=== PATIENT | male | born 1940 | race Caucasian/White ===

== ENCOUNTER 2017-06-20 21:28 | Emergency (ER) | payer MEDICARE ==
[~2017-06-20] VITALS: Ht 177.8 cm; Wt 86.2 kg
[~2017-06-20 21:28] MED LIST: MEDROL 4MG. DOSE4 MG PO
[2017-06-20] MEDS ORDERED: LISINOPRIL20 MG PO (21:43)
[2017-06-20] MEDS ORDERED: SIMVASTATIN20 MG PO (21:44)
[2017-06-20] MEDS ORDERED: PREDNISONE 5MG.5 MG PO (21:44)
[2017-06-20] MEDS ORDERED: ELIQUIS5 MG PO (21:45)
[2017-06-20] MEDS ORDERED: ALLOPURINOL100 MG PO (21:45)
[2017-06-20] MEDS ORDERED: ATIVAN1 MG PO (21:46)
[2017-06-20] MEDS ORDERED: ACETAMINOPHEN-H1 TA1 PO (21:46)
[2017-06-20] MEDS ORDERED: DULOXETINE HYDR30 MG PO (21:47)
[2017-06-20] MEDS ORDERED: TEKTURNA150 MG PO (21:48)
--- OUTSIDE RECORDS SUMMARY | 2017-06-20 21:55 | External Medical Summary Rpt | CCD ---
Author Author , MALINI Organization MALINI Address Unknown Phone [email or web address] Purpose Continuity of Care Document - 01-16-2017 through 2016 Problems Code Diagnosis DOS Provider Status Z13.6 ENCOUNTER 01-16-2017 FOR SCREENING FOR CARDIOVASCU LAR DISORDERS Results Labs Lab Lab Date Result Refere Interp Status Commen Order Detail nces retati t Range on Bas Metab 1999 Pnl SerPl (03-01-2017 11:40) Comment: Meter: [id number] Regrader: [id number] [employer] [facility] Glucose 302 70-130 complet BldC 017 mg/dL ed Glucomt 11:40 r-mCnc Bas Metab 2000 Pnl SerPl (03-01-2017 08:00) Comment: Meter: [id number] Regrader: [id number] [employer] [facility] Glucose 183 70-130 complet BldC 017 mg/dL ed Glucomt 08:00 r-mCnc Bas Metab 2000 Pnl SerPl (03-01-2017 04:48) Comment: National Kid[employer] Guidelines Comment: Comment: Stage Description GFR Comment: 1 Normal or High 90+ Comment: 2 Mild decrease 60-89 Comment: 3 Moderate decrease 30-59 Comment: 4 Severe decrease 15-29 Comment: 5 Kidney failure <15 Anion 10.0 3.0-11. complet Gap3 017 mmol/L 0 ed SerPl-s 04:48 Cnc BUN/Cre 15.6 7.0-25. complet at 017 0 ed SerPl 04:48 GFR/BSA 82 >60 complet .pred 017 mL/min/ ed SerPl 04:48 1.73 MDRD-Ar VRat Calcium 9.1 8.7-10. complet 017 mg/dL 4 ed XXX-sCn 04:48 c CO2 25.0 20.0-31 complet SerPl-s 017 mmol/L .0 ed Cnc 04:48 Chlorid 102 99-109 complet e 017 mmol/L ed SerPl-s 04:48 Cnc Potassi 3.7 3.5-5.5 complet um 017 mmol/L ed Bld-sCn 04:48 c Sodium 137 132-146 complet Bld-sCn 017 mmol/L ed c 04:48 Creat 0.90 0.60-1. complet Bld-mCn 017 mg/dL 30 ed c 04:48 BUN 14 9-23 complet Bld-mCn 017 mg/dL ed c 04:48 Glucose 188 70-100 complet 017 mg/dL ed Bld-mCn 04:48 c Mg Ionized SerPl-mCnc (03-01-2017 04:48) Magnesi 2.1 1.3-2.7 complet um 017 mg/dL ed SerPl-m 04:48 Cnc Bas Metab 2000 Pnl SerPl (02-28-2017 19:41) Comment: Meter: [id number] Regrader: [id number] ramy Tien Glucose 183 70-130 complet BldC 017 mg/dL ed Glucomt 19:41 r-mCnc Bas Metab 2000 Pnl SerPl (02-28-2017 16:47) Comment: Meter: [id number] Regrader: [id number] [employer] Rob Glucose 136 70-130 complet BldC 017 mg/dL ed Glucomt 16:47 r-mCnc Bas Metab 2000 Pnl SerPl (02-28-2017 11:25) Comment: Meter: [id number] Regrader: [id number] [employer] Rob Glucose 202 70-130 complet BldC 017 mg/dL ed Glucomt 11:25 r-mCnc Bas Metab 2000 Pnl SerPl (02-28-2017 09:02) Comment: Meter: [id number] Regrader: [id number] Betancur Rob Glucose 212 70-130 complet BldC 017 mg/dL ed Glucomt 09:02 r-mCnc Bas Metab 2000 Pnl SerPl (02-28-2017 05:43) Comment: National Kid[employer] Guidelines Comment: Comment: Stage Description GFR Comment: 1 Normal or High 90+ Comment: 2 Mild decrease 60-89 Comment: 3 Moderate decrease 30-59 Comment: 4 Severe decrease 15-29 Comment: 5 Kidney failure <15 Anion 7.0 3.0-11. complet Gap3 017 mmol/L 0 ed SerPl-s 05:43 Cnc BUN/Cre 14.0 7.0-25. complet at 017 0 ed SerPl 05:43 GFR/BSA 72 >60 complet .pred 017 mL/min/ ed SerPl 05:43 1.73 MDRD-Ar VRat Calcium 9.1 8.7-10. complet 017 mg/dL 4 ed XXX-sCn 05:43 c CO2 27.0 20.0-31 complet SerPl-s 017 mmol/L .0 ed Cnc 05:43 Chlorid 103 99-109 complet e 017 mmol/L ed SerPl-s 05:43 Cnc Potassi 3.8 3.5-5.5 complet um 017 mmol/L ed Bld-sCn 05:43 c Sodium 137 132-146 complet Bld-sCn 017 mmol/L ed c 05:43 Creat 1.00 0.60-1. complet Bld-mCn 017 mg/dL 30 ed c 05:43 BUN 14 9-23 complet Bld-mCn 017 mg/dL ed c 05:43 Glucose 220 70-100 complet 017 mg/dL ed Bld-mCn 05:43 c Mg Ionized SerPl-mCnc (02-28-2017 05:43) Magnesi 2.1 1.3-2.7 complet um 017 mg/dL ed SerPl-m 05:43 Cnc Bas Metab 1999 Pnl SerPl (02-27-2017 20:01) Comment: Meter: [id number] Regrader: [id number] Yazan Santamaria Glucose 290 70-130 complet BldC 017 mg/dL ed Glucomt 20:01 r-mCnc Bas Metab 2000 Pnl SerPl (02-27-2017 16:20) Comment: Meter: [id number] Regrader: [id number] Michelle Kinney Glucose 348 70-130 complet BldC 017 mg/dL ed Glucomt 16:20 r-mCnc Bas Metab 1999 Pnl SerPl (02-27-2017 11:49) Comment: Meter: [id number] Regrader: [id number] Michelle Kinney Glucose 87 70-130 complet BldC 017 mg/dL ed Glucomt 11:49 r-mCnc Mg Ionized SerPl-mCnc (02-26-2017 13:31) Magnesi 1.6 1.3-2.7 complet um 017 mg/dL ed SerPl-m 13:31 Cnc Bas Metab 1999 Pnl SerPl (02-26-2017 13:31) Comment: National Kid[employer] Guidelines Comment: Comment: Stage Description GFR Comment: 1 Normal or High 90+ Comment: 2 Mild decrease 60-89 Comment: 3 Moderate decrease 30-59 Comment: 4 Severe decrease 15-29 Comment: 5 Kidney failure <15 Anion 6.0 3.0-11. complet Gap3 017 mmol/L 0 ed SerPl-s 13:31 Cnc BUN/Cre 14.0 7.0-25. complet at 017 0 ed SerPl 13:31 GFR/BSA 72 >60 complet .pred 017 mL/min/ ed SerPl 13:31 1.73 MDRD-Ar VRat Calcium 9.3 8.7-10. complet 017 mg/dL 4 ed XXX-sCn 13:31 c CO2 28.0 20.0-31 complet SerPl-s 017 mmol/L .0 ed Cnc 13:31 Chlorid 106 99-109 complet e 017 mmol/L ed SerPl-s 13:31 Cnc Potassi 4.9 3.5-5.5 complet um 017 mmol/L ed Bld-sCn 13:31 c Sodium 140 132-146 complet Bld-sCn 017 mmol/L ed c 13:31 Creat 1.00 0.60-1. complet Bld-mCn 017 mg/dL 30 ed c 13:31 BUN 14 9-23 complet Bld-mCn 017 mg/dL ed c 13:31 Glucose 337 70-100 complet 017 mg/dL ed Bld-mCn 13:31 c Ca-I Bld-mCnc (02-26-2017 13:31) Ca-I 1.19 1.12-1. complet SerPl 017 mmol/L 32 ed ISE-mCn 13:31 c Bas Metab 2000 Pnl SerPl (01-29-2017 15:39) Comment: National Kidney [employer] Guidelines Comment: Comment: Stage Description GFR Comment: 1 Normal or High 90+ Comment: 2 Mild decrease 60-89 Comment: 3 Moderate decrease 30-59 Comment: 4 Severe decrease 15-29 Comment: 5 Kidney failure <15 Anion 13.0 3.0-11. complet Gap3 017 mmol/L 0 ed SerPl-s 15:39 Cnc BUN/Cre 15.0 7.0-25. complet at 017 0 ed SerPl 15:39 GFR/BSA 59 >60 complet .pred 017 mL/min/ ed SerPl 15:39 1.73 MDRD-Ar VRat Calcium 10.5 8.7-10. complet 017 mg/dL 4 ed XXX-sCn 15:39 c CO2 26.0 20.0-31 complet SerPl-s 017 mmol/L .0 ed Cnc 15:39 Chlorid 103 99-109 complet e 017 mmol/L ed SerPl-s 15:39 Cnc Potassi 5.1 3.5-5.5 complet um 017 mmol/L ed Bld-sCn 15:39 c Sodium 142 132-146 complet Bld-sCn 017 mmol/L ed c 15:39 Creat 1.20 0.60-1. complet Bld-mCn 017 mg/dL 30 ed c 15:39 BUN 18 9-23 complet Bld-mCn 017 mg/dL ed c 15:39 Glucose 215 70-100 complet 017 mg/dL ed Bld-mCn 15:39 c
--- OUTSIDE RECORDS SUMMARY | 2017-06-20 21:55 | External Medical Summary Rpt | CCD ---
Author Author , MALINI Organization MALINI Address Unknown Phone [email or web address] Purpose Continuity of Care Document - 01-16-2017 through 2016 Problems Code Diagnosis DOS Provider Status Z13.6 ENCOUNTER 01-16-2017 FOR SCREENING FOR CARDIOVASCU LAR DISORDERS Results Labs Lab Lab Date Result Refere Interp Status Commen Order Detail nces retati t Range on Bas Metab 1999 Pnl SerPl (03-01-2017 11:40) Comment: Meter: [id number] [facility] Agent: [id number] BATSley Glucose 302 70-130 complet BldC 017 mg/dL ed Glucomt 11:40 r-mCnc Bas Metab 2000 Pnl SerPl (03-01-2017 08:00) Comment: Meter: [id number] Community Health Agent: [id number] BATSley Glucose 183 70-130 complet BldC 017 mg/dL [...] 2000 Pnl SerPl (02-28-2017 19:41) Comment: Meter: [id number] Community Health Agent: [id number] ramy Tien Glucose 183 70-130 complet BldC 017 mg/dL ed Glucomt 19:41 r-mCnc Bas Metab 2000 Pnl SerPl (02-28-2017 16:47) Comment: Meter: [id number] Community Health Agent: [id number] [facility]anc[facility] Rob Glucose 136 70-130 complet BldC 017 mg/dL ed Glucomt 16:47 r-mCnc Bas Metab 2000 Pnl SerPl (02-28-2017 11:25) Comment: Meter: [id number] Community Health Agent: [id number] Betancur Rob Glucose 202 70-130 complet BldC 017 mg/dL ed Glucomt 11:25 r-mCnc Bas Metab 2000 Pnl SerPl (02-28-2017 09:02) Comment: Meter: [id number] Community Health Agent: [id number] Betancur Rob Glucose 212 70-130 complet BldC [...] 1999 Pnl SerPl (02-27-2017 20:01) Comment: Meter: [id number] Community Health Agent: [id number] Yazan Santamaria Glucose 290 70-130 complet BldC 017 mg/dL ed Glucomt 20:01 r-mCnc Bas Metab 2000 Pnl SerPl (02-27-2017 16:20) Comment: Meter: [id number] Community Health Agent: [id number] Michelle Kinney Glucose 348 70-130 complet BldC 017 mg/dL ed Glucomt 16:20 r-mCnc Bas Metab 1999 Pnl SerPl (02-27-2017 11:49) Comment: Meter: [id number] Community Health Agent: [id number] Michelle Kinney Glucose 87 70-130 complet BldC [...]
--- OUTSIDE RECORDS SUMMARY | 2017-06-20 21:56 | External Medical Summary Rpt | CCD ---
Demographics Preferred Language Kyrgyz Marital Status Unknown [employer] Affiliation Unknown Race Unknown Ethnic Group Unknown Author Author , MICHAEL NAYAK Address Unknown Phone Immunization Unable to retrieve immunization data due to connection failure with Immunization Registry. Please try again later.
--- OUTSIDE RECORDS SUMMARY | 2017-06-20 21:56 | External Medical Summary Rpt | CCD ---
Author Author [employer] Organization [employer] Address Unknown Phone Unavailable Purpose Continuity of Care Document - through 2016
--- OUTSIDE RECORDS SUMMARY | 2017-06-20 21:56 | External Medical Summary Rpt ---
Author Author MALINI Moreno, [employer] Organization [employer] Address Unknown Phone Unavailable
--- OUTSIDE RECORDS SUMMARY | 2017-06-20 21:56 | External Medical Summary Rpt | CCD ---
Demographics Preferred Language Albanian Marital Status Unknown [employer] Affiliation Unknown Race Unknown Ethnic Group Unknown Author Author , MICHAEL NAYAK Address Unknown Phone Immunization Unable to retrieve immunization data due to connection failure with Immunization Registry. Please try again later.
--- NOTE | 2017-06-20 22:18 | Emergency Room Report ---
History of Present Illness Time Seen by [id number] Presenting Problem in Triage Pt arrived:Walked Presenting Problem:PT STATES THAT 1 HOUR AGO HE WAS TAKING HIS HEARING AID OUT AND THAT PART OF HIS HEARING AID IS STUCK IN HIS LEFT EAR. HE STATES THAT THE TUBE CAME OFF OF THE HEARING AID. 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 N Clinical Suspician of Infection? N Mental Status: 1 - Regular (Normal Baseline) Sepsis Risk:Low Sepsis Risk Have you (or family members/close friends) recently traveled outside the [place]? N If Yes, where/when: Have you had exposure to infectious disease within the past month? N TB? Other? Specify: Source patient, RN notes reviewed, family, old records Exam Limitations no limitations Comment foreign body lt ear part of hearing aide Cardiac Chest Pain Chest pain indicative of cardiac No Timing/Duration this evening Severity moderate ALLERGIES Coded Allergies: morphine (06/20/17) Uncoded Allergies: PENCILLIN (06/20/17) Home Medications Active Scripts Methylprednisolone (Medrol Dose Surjit) 4 MG PO UD #1 SURJIT Prov: 01/02/08 Reported Medications Lisinopril 20 MG PO DAILY #90 Prednisone (Prednisone 5MG) 5 MG PO BID #30 Simvastatin 20 MG PO DAILY #90 Allopurinol 100 MG PO TID #60 Apixaban (Eliquis) 5 MG PO DAILY #60 HYDROCODONE/ACETAMINOPHEN (Hydrocodon-Acetaminophn 10-325) 1 TAB PO DAILY #120 Lorazepam (Ativan 1MG) 1 MG PO DAILY #60 DULOXETINE HCL (Duloxetine Hydrochloride) 30 MG PO DAILY #30 ALISKIREN HEMIFUMARATE (Tekturna) 150 MG PO BID History Medical History General CAD? No Angina: No [place]: No Hypertension? Yes Hyperlipidemia? Yes CHF? No DVT? No PE? No COPD? No Asthma? No Anemia? No GERD? No Gastric ulcers? No GI Bleed? No Hernia? No Thyroid Problems? No Hypothyroidism? No CVA? No Seizures? No Diabetes? Yes Insulin Dependent: No Insulin Pump: No Home FSBS? No Renal Insuffiency? No End Stage Renal Disease? No UTI? No Stones? No BPH? No GB Disease: Yes Nephritic Syndrome? No Asplenia? No Hepatitis? No Sickle Cell Disease? No Arthritis? No Migraines? No Cataracts? No Glaucoma? No MRSA? No HIV? No TB? No Anxiety? No Depression? No Cancer? Yes Site: SKIN [id number] More? No Immunization Hx DT/Tetanus 5-10 YRS Surgical Hx Previous Surgery?Y CHOLECYSTECTOMY SKIN CANCER REMOVED Social History Smoking Hx Smoker: Former Smoker Tobacco: No Are you/the child exposed to second-hand smoke: No Alcohol Alcohol: Yes Drugs none Review of Systems All Other Systems Reviewed and Negative Constitutional denies fever Eyes denies drainage ENT see HPI, ear pain. Respiratory denies shortness of breath Cardiovascular denies palpitations Gastrointestinal denies vomiting Genitourinary denies: frequency. Musculoskeletal denies joint swelling Skin denies rash Psychiatric/Neurological denies headache, denies seizure Physical Exam Vital Signs Vital Signs Date Time Temp Pulse Resp B/P Pulse O2 O2 Flow FiO2 Ox Delivery Rate 06/208 97.9 82 18 98 - WBC >12,000 or <4,000 or 10% bands? 2 or more SIRS Criteria Met? B/P: MAP:126 Creatinine >2.0? UA output<0.5ml/kg/hr for 2 hrs? Platelet count >100,000? Lactate >2.0mmol/1? INR >1.2 or PTT > than 60 sec? Evidence of Organ Dysfunction? Provider documented clinical suspician of infection? N Sepsis Criteria Count: 0 Sepsis Risk: Low Sepsis Risk General Appearance no apparent distress Eye Exam - bilateral eye PERRL, bilateral eye EOMI Ear, Nose, Throat fb lt ear canal - no bleeding Neck supple Respiratory Status No: respiratory distress. 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 No Procedures FB Removal (excluding Eyes) FB Removal Risks/benefits discussed with pt/guardian? Yes Location/Suspected object hearing aide part/ lt ear canal Anesthesia None Foreign Body (Not Eyes) Remove Simple. No: Complicated, Probing, Incision & Search, Cerumen spatula used, Irrigation ml-, Xray. Risk of retained FB explained to pt/guardian? Yes Departure Departure Time of Disposition 2211 Disposition DC Home or Self Care(routine) Clinical Impression Primary Impression: Foreign body in ear Qualifiers: Encounter type: initial encounter Laterality: left Qualified Code: T16.2XXA - Foreign body in left ear, initial encounter Condition STABLE Patient Instructions DI for Removal of Foreign Body From Ear Additional Instructions see pcp for follow up as needed Discharge Counseling Counseled pt/family regarding diagnosis, follow up needs ED Critical Care Critical Care No at [id number]
--- NOTE | 2017-06-20 22:18 | Emergency Room Report ---
History of Present Illness Time Seen by [id number] Presenting Problem in Triage Pt arrived:Walked Presenting Problem:PT STATES THAT 1 HOUR AGO HE WAS TAKING HIS HEARING AID OUT AND THAT PART OF HIS HEARING AID IS STUCK IN HIS LEFT EAR. HE STATES THAT THE TUBE CAME OFF OF THE HEARING AID. 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 N Clinical Suspician of Infection? N Mental Status: 1 - Regular (Normal Baseline) Sepsis Risk:Low Sepsis Risk Have you (or family members/close friends) recently traveled outside the [place]? N If Yes, where/when: Have you had exposure to infectious disease within the past month? N TB? Other? Specify: Source patient, RN notes reviewed, family, old records Exam Limitations no limitations Comment foreign body lt ear part of hearing aide Cardiac Chest Pain Chest pain indicative of cardiac No Timing/Duration this evening Severity moderate ALLERGIES Coded Allergies: morphine (06/20/17) Uncoded Allergies: PENCILLIN (06/20/17) Home Medications Active Scripts Methylprednisolone (Medrol Dose Surjit) 4 MG PO UD #1 SURJIT Prov: 01/02/08 Reported Medications Lisinopril 20 MG PO DAILY #90 Prednisone (Prednisone 5MG) 5 MG PO BID #30 Simvastatin 20 MG PO DAILY #90 Allopurinol 100 MG PO TID #60 Apixaban (Eliquis) 5 MG PO DAILY #60 HYDROCODONE/ACETAMINOPHEN (Hydrocodon-Acetaminophn 10-325) 1 TAB PO DAILY #120 Lorazepam (Ativan 1MG) 1 MG PO DAILY #60 DULOXETINE HCL (Duloxetine Hydrochloride) 30 MG PO DAILY #30 ALISKIREN HEMIFUMARATE (Tekturna) 150 MG PO BID History Medical History General CAD? No Angina: No CA: No Hypertension? Yes Hyperlipidemia? Yes CHF? No DVT? No PE? No COPD? No Asthma? No Anemia? No GERD? No Gastric ulcers? No GI Bleed? No Hernia? No Thyroid Problems? No Hypothyroidism? No CVA? No Seizures? No Diabetes? Yes Insulin Dependent: No Insulin Pump: No Home FSBS? No Renal Insuffiency? No End Stage Renal Disease? No UTI? No Stones? No BPH? No GB Disease: Yes Nephritic Syndrome? No Asplenia? No Hepatitis? No Sickle Cell Disease? No Arthritis? No Migraines? No Cataracts? No Glaucoma? No MRSA? No HIV? No TB? No Anxiety? No Depression? No Cancer? Yes Site: SKIN [id number] More? No Immunization Hx DT/Tetanus 5-10 YRS Surgical Hx Previous Surgery?Y CHOLECYSTECTOMY SKIN CANCER REMOVED Social History Smoking Hx Smoker: Former Smoker Tobacco: No Are you/the child exposed to second-hand smoke: No Alcohol Alcohol: Yes Drugs none Review of Systems All Other Systems Reviewed and Negative Constitutional denies fever Eyes denies drainage ENT see HPI, ear pain. Respiratory denies shortness of breath Cardiovascular denies palpitations Gastrointestinal denies vomiting Genitourinary denies: frequency. Musculoskeletal denies joint swelling Skin denies rash Psychiatric/Neurological denies headache, denies seizure Physical Exam Vital Signs Vital Signs Date Time Temp Pulse Resp B/P Pulse O2 O2 Flow FiO2 Ox Delivery Rate 06/208 97.9 82 18 98 - WBC >12,000 or <4,000 or 10% bands? 2 or more SIRS Criteria Met? B/P: MAP:126 Creatinine >2.0? UA output<0.5ml/kg/hr for 2 hrs? Platelet count >100,000? Lactate >2.0mmol/1? INR >1.2 or PTT > than 60 sec? Evidence of Organ Dysfunction? Provider documented clinical suspician of infection? N Sepsis Criteria Count: 0 Sepsis Risk: Low Sepsis Risk General Appearance no apparent distress Eye Exam - bilateral eye PERRL, bilateral eye EOMI Ear, Nose, Throat fb lt ear canal - no bleeding Neck supple Respiratory Status No: respiratory distress. 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 No Procedures FB Removal (excluding Eyes) FB Removal Risks/benefits discussed with pt/guardian? Yes Location/Suspected object hearing aide part/ lt ear canal Anesthesia None Foreign Body (Not Eyes) Remove Simple. No: Complicated, Probing, Incision & Search, Cerumen spatula used, Irrigation ml-, Xray. Risk of retained FB explained to pt/guardian? Yes Departure Departure Time of Disposition 2211 Disposition DC Home or Self Care(routine) Clinical Impression Primary Impression: Foreign body in ear Qualifiers: Encounter type: initial encounter Laterality: left Qualified Code: T16.2XXA - Foreign body in left ear, initial encounter Condition STABLE Patient Instructions DI for Removal of Foreign Body From Ear Additional Instructions see pcp for follow up as needed Discharge Counseling Counseled pt/family regarding diagnosis, follow up needs ED Critical Care Critical Care No at [id number]
[2017-06-20 22:32] VITALS: BP 163/65
== END 2017-06-20 22:33 | disposition home or self-care (01) ==
LOC: ER 21:28
PROC: 09C47ZZ Extirpation of Matter from Left External Auditory Canal, Via Natural or Artificial Opening (ICD-10-PCS; principal; 2017-06-20)
DX: T16.2XXA Foreign body in left ear, initial encounter (principal); Z97.4 Presence of external hearing-aid